=== PATIENT | male | born 1985 | race Two or more races ===

== ENCOUNTER 2018-04-02 09:29 | Emergency (ER) | payer MEDICARE ==
[~2018-04-02] VITALS: Ht 167.6 cm; Wt 68.0 kg
[2018-04-02] MEDS ORDERED: MORPHINE SULFATE 4 MG/ML CPJ (NOT FOR IM USE) IV STA (09:41)
[2018-04-02] MEDS ORDERED: KETOROLAC 30MG/ML VIAL IV STA (09:41)
[2018-04-02] MEDS ORDERED: MORPHINE SULFATE 10 MG/ML CPJ IV ONE (10:00)
[2018-04-02 10:07] LABS: BASOPHILS % 1.2 % (0.0-2.0); HEMATOCRIT. 43.3 % (42.0-52.0); HEMOGLOBIN. 14.6 g/dL (14.0-18.0); LYMPHOCYTES % 31.3 % (20.0-50.0); MEAN CORPUSCULAR HEMOGLOBIN 32.9 pg (28.0-32.0); MEAN CORPUSCULAR VOLUME 97.7 fL (80.0-94.0); MEAN PLATELET VOLUME 7.9 fl (7.4-10.4); MONOCYTES % 5.9 % (2.0-8.0); NEUTROPHILS % 58.6 % (40.0-76.0); PLATELET 343 x1000/uL (130-400); RED BLOOD CELL COUNT 4.44 mill/uL (4.7-6.1); RED CELL DISTRIBUTION WIDTH 14.8 % (11.6-14.6)
[2018-04-02 10:14] LABS: CHLORIDE 107 mEq/L (98-107)
[2018-04-02] MEDS ORDERED: ONDANSETRON 4MG/5ML UDC PO ONE (13:30)
[2018-04-02] MEDS ORDERED: AZITHROMYCIN 500 MG TABLET PO ONE (13:30)
[2018-04-02 14:35] VITALS: BP 114/73
== END 2018-04-02 14:54 | disposition home or self-care (01) ==
LOC: ER 09:44
DX: N45.1 Epididymitis (principal)
CPT/HCPCS: 36415; 76870; 80053; 83690; 85025; 85610; 93976; 96374; 96375; 99284; J1885; J2270

== ENCOUNTER 2020-01-25 10:21 | Emergency (ER) | payer SELFPAY ==
[~2020-01-25] VITALS: Ht 167.6 cm; Wt 69.0 kg
[2020-01-25] MEDS ORDERED: FAMOTIDINE 20MG/2ML VIAL IV STA (10:49)
[2020-01-25] MEDS ORDERED: ONDANSETRON HCL 4MG/2ML INJ IV STA (10:49)
[2020-01-25] MEDS ORDERED: SODIUM CHLORIDE 0.9% 1,000 ML IV ONE ×2 (11:00)
[2020-01-25 11:11] LABS: BASOPHILS % 0.2 % (0.0-2.0); EOSINOPHILS % 0.1 % (0.0-5.0); HEMATOCRIT. 51.9 % (42.0-52.0); HEMOGLOBIN. 17.5 g/dL (14.0-18.0); LYMPHOCYTES % 11.6 % (20.0-50.0); MEAN CORPUSCULAR HEMOGLOBIN 31.6 pg (28.0-32.0); MEAN CORPUSCULAR VOLUME 93.5 fL (80.0-94.0); MEAN PLATELET VOLUME 9.1 fl (7.4-10.4); MONOCYTES % 7.8 % (2.0-8.0); NEUTROPHILS % 80.3 % (40.0-76.0); PLATELET 270 x1000/uL (130-400); RED BLOOD CELL COUNT 5.55 mill/uL (4.7-6.1); RED CELL DISTRIBUTION WIDTH 13.9 % (11.6-14.6)
[2020-01-25] MEDS ORDERED: HALOPERIDOL LACTATE 5MG/ML VIAL IM ONE (11:15)
[2020-01-25 11:18] LABS: INR 1.1; PROTHROMBIN TIME 11.1 sec (9.6-11.0)
[2020-01-25 11:45] LABS: CHLORIDE 91 mEq/L (98-107)
[2020-01-25] MEDS ORDERED: IOHEXOL-300 100 ML BOTTLE ONE (12:24)
[2020-01-25] MEDS ORDERED: LACTATED RINGERS 1,000 ML IV SCH (13:30)
[2020-01-25] MEDS ORDERED: MORPHINE SULFATE 4 MG/ML CPJ (NOT FOR IM USE) IV NR (13:30)
[2020-01-25 16:26] LABS: CLARITY URINE CLEAR (CLEAR); COLOR URINE YELLOW (YELLOW); KETONES URINE 3+ (NEGATIVE); LEUKOCYTE ESTERASE URINE NEGATIVE (NEGATIVE); NITRITE URINE NEGATIVE (NEGATIVE); OCCULT BLOOD URINE NEGATIVE (NEGATIVE); PROTEIN URINE 2+ (NEGATIVE); SPECIFIC GRAVITY URINE 1.022 (1.005-1.030); UROBILINOGEN URINE 0.2 E.U./dL (0.2-1.0)
[2020-01-25 16:40] LABS: CHLORIDE 107 mEq/L (98-107)
[2020-01-25 17:22] LABS: *AMPHETAMINES SCREEN URINE PRESUMTIVE POSITIVE (NEGATIVE); *BARBITURATES SCREEN URINE NEGATIVE (NEGATIVE); *BENZODIAZEPINES SCREEN URINE NEGATIVE (NEGATIVE); *COCAINE SCREEN URINE NEGATIVE (NEGATIVE); CANNABINOID URINE SCREEN PRESUMTIVE POSITIVE (NEGATIVE); METHADONE URINE SCREEN NEGATIVE (NEGATIVE); OPIATES URINE SCREEN NEGATIVE (NEGATIVE)
[2020-01-25 17:28] LABS: PHENCYCLIDINE URINE SCREEN NEGATIVE (NEGATIVE)
[2020-01-25 18:20] VITALS: BP 127/79
== END 2020-01-25 18:31 | disposition home or self-care (01) ==
LOC: ER 10:25
DX: R11.2 Nausea with vomiting, unspecified (principal); R10.13 Epigastric pain; Z87.891 Personal history of nicotine dependence
CPT/HCPCS: 36415; 74177; 80053; 80305; 81003; 83690; 85025; 85610; 96361; 96372; 96374; 96375; 99285; J1630; J2270; J2405; J3490; Q9967